=== PATIENT | male | born 1955 | race Caucasian/White ===

== ENCOUNTER → 2016-02-13 | Day surgery (SDC) | payer OTHER ==
[~2016-02-13] VITALS: Ht 172.7 cm; Wt 88.6 kg
[~2016-02-13] MED LIST: ACETAMINOPHEN 1000 MG/100 ML VIAL IV ONE; ALPR0.5T3 PO; BACITRACIN TOP OINT 15 GM TUBE ONE; BUPIVACAINE HCL PF 0.5% 30 ML VIAL ONE; DEXAMETHASONE SOD PHOS 4 MG/ML VIAL ONE; FAMOTIDINE 20 MG/2 ML VIAL ONE; INSULIN HUMAN REGULAR 1,000 UNITS/10 ML VIAL SQ PRN; LACTATED RINGER'S 1000 ML INJ 1,000 ML IV SCH; LACTATED RINGER'S 1000 ML IV SCH; LEVO.2 PO; LIDOCAINE HCL 2% 50 ML VIAL ONE; METOPROLOL TARTRATE 25 MG TAB PO PRN; MIDAZOLAM HCL 2 MG/2 ML VIAL ONE; MULTTAB67 PO; PROPOFOL 200 MG/20 ML AMP IV ONE; PROPOFOL 500 MG/50 ML BTL IV ONE; PROPOFOL 500 MG/50 ML INJ 50 ML ONE; SODIUM CHLORID 0.9% 500 ML IV SCH; ZETI10TA5 PO; ceFAZolin 1,000 MG/NS 100 ML IV SCH
[2016-02-13 06:21] VITALS: BP 151/97; PULSE 63; RESP 16; TEMP 97.8; O2SAT 97
[2016-02-13 09:10] VITALS: BP 142/78; PULSE 59; RESP 16; TEMP 97.1; O2SAT 97
--- NOTE | 2016-02-13 09:24 | MP ---
cc: KAYLIN WILLSON DATE OF SURGERY 02/13/2016 PREOPERATIVE DIAGNOSIS Left index finger trigger finger. POSTOPERATIVE DIAGNOSIS Left index finger trigger finger. PROCEDURE Left index finger trigger finger release. SURGEON Dr. Kaylin Wlilson ANESTHESIA MAC TOURNIQUET TIME 8 minutes at 250 mmHg INDICATIONS FOR PROCEDURE Jordi Nielsen is a very pleasant 60-year-old male prior patient of Dr. Tinoco who has had prior trigger finger releases of the middle finger, ring finger and small finger who presented with triggering of the left index finger. He failed corticosteroid injections. He requested surgical intervention. He is well aware of the risks and benefits from prior surgery. The risks were explained to include wound complications, infection, stiffness, pain, and he elected to proceed. DESCRIPTION OF PROCEDURE The patient was identified in the preoperative holding area. The correct extremity was marked. The patient was taken to the operating room where anesthesia was induced. The left upper extremity was prepped and draped in the normal sterile fashion. Ten cc of 2% lidocaine with no epinephrine was used to perform a digital block over the left index finger. The tourniquet was inflated to 250 mmHg for eight minutes. A longitudinal incision was made over the A1 daniella of the left index finger. Care was taken to protect the digital nerves and digital arteries. There was significant thickening of the A1 daniella. The A1 daniella was identified and incised with care taken to protect the flexor tendon. There was moderate flexor tenosynovitis which was debrided. Following this, the patient with a range of motion of the index finger with no clicking. The tourniquet was released. Hemostasis obtained. The wound was closed with nylon. The patient was placed into a soft dressing and awoken from anesthesia without any complications. He will work on gentle range of motion. I will see him in the office in two weeks for suture removal. MD MALU Diane/JUAN CARLOS /8:31 AM /9:10 AM [facility]
--- NOTE | 2016-02-13 15:36 | EKG ---
Date Performed: 02/13/2016 Time Performed: 06:23:48 PTAGE: 60 years EKG: Sinus rhythm NORMAL ECG PREVIOUS TRACING 12/19/2007 12.44.10 Compared to previous tracing, the patient is no longer br adycardic. DOCTOR: Mimi Holloway Interpretating Date/Time 02/13/2016 15:34:58
== END | disposition home or self-care (01) ==
LOC: HSDC 05:40
PROVIDERS: ATTEND Orthopaedic Surgery
DX: M65.322 Trigger finger, left index finger (principal); E78.5 Hyperlipidemia, unspecified; Z01.810 Encounter for preprocedural cardiovascular examination
CPT/HCPCS: 01810; 26055; 93005; J0131; J0690; J1100; J2250; J3010; J7120